=== PATIENT | male | born 1940 | race Caucasian/White ===

== ENCOUNTER → 2016-07-20 | Outpatient (CLI) | payer MEDICARE, BLACK LUNG | LOC: HEART 5 07-10 08:00 | DX: I20.9 Angina pectoris, unspecified (principal); R00.2 Palpitations | CPT/HCPCS: 78452; 93017; 93306; A9502; J2785 ==

== ENCOUNTER 2021-04-11 20:59 | Inpatient (IN) | payer MEDICARE, OTHER ==
[~2021-04-11] VITALS: Ht 180.3 cm; Wt 73.0 kg
[2021-04-12 08:50] LABS: HEMOGLOBIN 14.4 gm/dl (14.0-17.5); RED BLOOD COUNT 4.6 M/UL (4.20-5.50)
[2021-04-12 09:58] LABS: BUN/CREATININE RATIO 26 (0-10)
[2021-04-12] MEDS ORDERED: FLOMAX 0.4 MG0.4 MG PO (11:04)
[2021-04-12] MEDS ORDERED: PRAVASTATIN SOD40 MG PO (11:04)
[2021-04-12] MEDS ORDERED: LISINOPRIL20 MG PO (11:04)
[2021-04-12] MEDS ORDERED: FINASTERIDE5 MG PO (11:04)
[2021-04-12] MEDS ORDERED: PROAIR HFA8.5 GM INH (11:05)
[2021-04-12] MEDS ORDERED: ASPIRIN81 MG PO (11:05)
[2021-04-12] MEDS ORDERED: OMEPRAZOLE20 MG PO (11:06)
[2021-04-12] MEDS ORDERED: BUSPIRONE HCL5 MG PO (11:06)
[2021-04-12] MEDS ORDERED: LORATADINE10 MG PO (11:06)
[2021-04-12] MEDS ORDERED: METOPROLOL TAR100 MG PO (11:06)
[2021-04-12] MEDS ORDERED: NITROGLYCERIN0.4 MG SL (11:07)
[2021-04-12] MEDS ORDERED: SEN-O-TAB8.6 MG PO (11:07)
[2021-04-13 04:05] LABS: HEMOGLOBIN 13.5 gm/dl (14.0-17.5); RED BLOOD COUNT 4.37 M/UL (4.20-5.50); WHITE BLOOD COUNT 17.5 K/UL (4.5-11.0)
[2021-04-13 04:53] LABS: BUN/CREATININE RATIO 29 (0-10)
[2021-04-14 03:34] LABS: HEMOGLOBIN 14.5 gm/dl (14.0-17.5); RED BLOOD COUNT 4.67 M/UL (4.20-5.50); WHITE BLOOD COUNT 14.8 K/UL (4.5-11.0)
[2021-04-14 03:55] LABS: BUN/CREATININE RATIO 28 (0-10)
[2021-04-15 03:00] LABS: BUN/CREATININE RATIO 36 (0-10)
[2021-04-16 03:59] LABS: BUN/CREATININE RATIO 36 (0-10)
[2021-04-16] MEDS ORDERED: ELIQUIS 5 MG TAB5 MG PO (12:42)
[2021-04-16] MEDS ORDERED: DECADRON IM/I4 MG/ML PO (12:42)
[2021-04-16] MEDS ORDERED: BENZONATATE100 MG PO (12:42)
[2021-04-16] MEDS ORDERED: DIGOXIN250 MCG PO (12:42)
[2021-04-16] MEDS ORDERED: DEXAMETHASONE1 MG PO (14:13)
== END 2021-04-16 14:36 | disposition home or self-care (01) | DRG 871 ==
LOC: PROG CARE 20:59
PROVIDERS: Emergency Medicine; Internal Medicine; ADMIT Internal Medicine Infectious Disease
PROC: 8E0ZXY6 Isolation (ICD-10-PCS; principal; 2021-04-12)
PROC: XW033E5 Introduction of Remdesivir Anti-infective into Peripheral Vein, Percutaneous Approach, New Technology Group 5 (ICD-10-PCS; 2021-04-12)
PROC: 3E0333Z Introduction of Anti-inflammatory into Peripheral Vein, Percutaneous Approach (ICD-10-PCS; 2021-04-12)
DX: A41.89 Other specified sepsis (principal); U07.1 COVID-19; J12.82 Pneumonia due to coronavirus disease 2019; J96.21 Acute and chronic respiratory failure with hypoxia; I21.A1 Myocardial infarction type 2; I50.33 Acute on chronic diastolic (congestive) heart failure; I48.92 Unspecified atrial flutter; J44.0 Chronic obstructive pulmonary disease with (acute) lower respiratory infection; I25.10 Atherosclerotic heart disease of native coronary artery without angina pectoris; K21.9 Gastro-esophageal reflux disease without esophagitis; N40.0 Benign prostatic hyperplasia without lower urinary tract symptoms; E78.5 Hyperlipidemia, unspecified; I48.0 Paroxysmal atrial fibrillation; J60 Coalworker's pneumoconiosis; Z96.652 Presence of left artificial knee joint; I11.0 Hypertensive heart disease with heart failure; Z96.611 Presence of right artificial shoulder joint; F41.9 Anxiety disorder, unspecified; R94.6 Abnormal results of thyroid function studies; I25.2 Old myocardial infarction; Z86.16 Personal history of COVID-19; Z95.1 Presence of aortocoronary bypass graft; Z87.442 Personal history of urinary calculi; Z90.5 Acquired absence of kidney; Z85.528 Personal history of other malignant neoplasm of kidney; Z98.890 Other specified postprocedural states; Z88.2 Allergy status to sulfonamides; Z82.49 Family history of ischemic heart disease and other diseases of the circulatory system; Z80.3 Family history of malignant neoplasm of breast; Z80.0 Family history of malignant neoplasm of digestive organs; Z87.891 Personal history of nicotine dependence; Z88.8 Allergy status to other drugs, medicaments and biological substances; Z79.82 Long term (current) use of aspirin; Z79.899 Other long term (current) drug therapy
CPT/HCPCS: ECHO; 36415; 36600; 71045; 71275; 80048; 80053; 80202; 82550; 82553; 82803; 83605; 83735; 83880; 84439; 84443; 84481; 84484; 85025; 85027; 86140; 87040; 87081; 87205; 93005; 93306; 94640; 94664; 94760; J1100; J1335; J1650; J1940; J3370; J7030; J7050; J7070; Q9967